=== PATIENT | female | born 2000 | race Caucasian/White ===

== ENCOUNTER → 2021-07-14 | Outpatient (CLI) | payer BC ==
[2021-07-14 10:56] LABS: HEMATOCRIT 37.4 % (37.0-47.0); HEMOGLOBIN 12.4 g/dl (12.5-16.0); MEAN CELL VOLUME 88 fl (80.0-100.0); MEAN CORPUSCULAR HEMOGLOBIN 29 pg (27-31); MEAN CORPUSCULAR HGB CONC 33 g/dl (33.0-37.0); MEAN PLATELET VOLUME 9.4 fl (7.4-10.4); PLATELET COUNT 255 K/mm3 (130-400); RED BLOOD COUNT 4.23 M/mm3 (4.10-5.30); REDCELL DISTRIBUTION WIDTH-CV 12.5 % (11.5-14.5)
[2021-07-14 11:13] LABS: ALBUMIN 4.4 gm/dL (3.5-5.0); BILIRUBIN,TOTAL 0.6 mg/dL (0.2-1.2); CALCIUM 9.4 mg/dL (8.4-10.2); CREATININE, serum 0.86 mg/dL (0.57-1.11); POTASSIUM 4.5 mmol/L (3.5-4.5); TOTAL PROTEIN 7.8 gm/dL (6.2-8.1)
[2021-07-14 11:33] LABS: THYROID STIMULATING HORMONE 1.207 uIU/mL (0.350-4.940)
[2021-07-14 12:12] LABS: EOSINOPHIL 2 % (0-4); LYMPHOCYTE 57 % (20.0-51.0); NEUTROPHILS 39 % (42.0-75.2)
[2021-07-14 12:14] LABS: PLATELET ESTIMATE NORMAL (NORMAL)
== END ==
LOC: COL.LAB 10:37
DX: Z79.899 Other long term (current) drug therapy (principal)

== ENCOUNTER 2021-10-11 08:00 | Outpatient (RCR) | payer BC | END 2021-10-13 | disposition home or self-care (01) | LOC: PT.GENESIS | DX: M25.312 Other instability, left shoulder (principal) ==

== ENCOUNTER 2021-11-09 14:30 | Outpatient (RCR) | payer BC | END 2021-11-12 | disposition home or self-care (01) | LOC: PT.GENESIS | DX: M25.312 Other instability, left shoulder (principal) ==

== ENCOUNTER 2021-11-22 08:45 | Outpatient (RCR) | payer BC | END 2021-12-13 | disposition still patient (30) | LOC: PT.GENESIS | DX: M25.312 Other instability, left shoulder (principal) ==

== ENCOUNTER 2021-12-15 13:04 | Emergency (ER) | payer BC ==
[~2021-12-15] VITALS: Ht 175.3 cm; Wt 68.2 kg
[2021-12-15 13:22] VITALS: BP 125/98; TEMP 98.4
[2021-12-15] MEDS ORDERED: ADDERALL XR20 MG PO (13:26)
[2021-12-15] MEDS ORDERED: PRISTIQ25 MG PO (13:26)
[2021-12-15] MEDS ORDERED: WELLBUTRIN XL150 MG PO (13:27)
[2021-12-15] MEDS ORDERED: SEROQUEL 200MG200 MG PO (13:27)
[2021-12-15] MEDS ORDERED: FLORINEF ACETA0.1 MG PO (13:27)
[2021-12-15] MEDS ORDERED: ANIMAL SHAPES +1 CTB PO (13:28)
[2021-12-15 14:13] VITALS: PULSE 70
== END 2021-12-15 14:13 | disposition home or self-care (01) ==
LOC: COL.ER 13:04
DX: S51.851A Open bite of right forearm, initial encounter (principal); Z28.310 Unvaccinated for COVID-19; W55.01XA Bitten by cat, initial encounter

== ENCOUNTER 2022-01-09 08:00 | Outpatient (RCR) | payer BC ==
[~2022-01-09 08:00] MED LIST: ADDERALL XR20 MG PO; ANIMAL SHAPES +1 CTB PO; FLORINEF ACETA0.1 MG PO; PRISTIQ25 MG PO; SEROQUEL 200MG200 MG PO; WELLBUTRIN XL150 MG PO
== END 2022-01-12 | disposition home or self-care (01) ==
LOC: WSOT
DX: M35.7 Hypermobility syndrome (principal)

== ENCOUNTER 2022-01-11 08:00 | Outpatient (RCR) | payer BC | END 2022-01-12 | disposition home or self-care (01) | LOC: PT.GENESIS | DX: M25.312 Other instability, left shoulder (principal) ==

== ENCOUNTER 2022-02-08 08:15 | Outpatient (RCR) | payer BC | END 2022-02-12 | disposition home or self-care (01) | LOC: PT.GENESIS | DX: M25.312 Other instability, left shoulder (principal) ==

== ENCOUNTER 2022-02-09 08:00 | Outpatient (RCR) | payer BC | END 2022-02-12 | disposition home or self-care (01) | LOC: WSOT | DX: M35.7 Hypermobility syndrome (principal) ==

== ENCOUNTER 2022-02-23 12:45 | Outpatient (RCR) | payer BC | END 2022-03-15 | disposition home or self-care (01) | LOC: WSOT | DX: M35.7 Hypermobility syndrome (principal) ==

== ENCOUNTER → 2022-03-15 | Outpatient (RCR) | payer BC | END | disposition home or self-care (01) | LOC: PT.GENESIS | DX: M25.312 Other instability, left shoulder (principal) ==